=== PATIENT | female | born 1960 | race Caucasian/White ===

== ENCOUNTER → 2017-06-13 | Outpatient (CLI) | payer BC ==
--- NOTE | 2017-06-13 14:13 | US ---
EXAMINATION TYPE: US venous doppler duplex LE LT DATE OF EXAM: 06/13/2017 1:52 PM COMPARISON: NONE CLINICAL HISTORY: Localized Swelling Mass/Lump Left Lower LimbR22.42. Patient stated has been treated recently for cellulitis left leg and complains of palpable and skin redness anterior lower left leg. SIDE PERFORMED: Left TECHNIQUE: The lower extremity deep venous system is examined utilizing real time linear array sonog binta with graded compression, doppler sonography and color-flow sonography. VESSELS IMAGED: Common Femoral Vein Deep Femoral Vein Greater Saphenous Vein * Femoral Vein Popliteal Vein Small Saphenous Vein * Proximal Calf Veins (* superficial vessels) Left Leg: Negative for DVT. At patient's palpable and skin redness a superficial vein is noted not f ully compressing for 4.0cm length, but color flow is achieved by distal augmentation. Left groin lymp h node is imaged = 3.5 x 1.4 x 1.0cm. Tech findings reported to Evelia at Dr An's Office at exam 's end. Patient is advised to contact Dr An for any patient care. IMPRESSION: Grayscale, color doppler, spectral doppler imaging performed of the deep veins of the lo wer extremities. There is normal flow, compressibility, vascular waveforms. No evident deep venous thrombosis at or above the left knee. In the lower leg at the site of patient's palpable abnormality there is some low-level internal echo present within the superficial vein which is not completely present. There is local edema present. Fi ndings may represent a superficial thrombophlebitis.
== END | disposition home or self-care (01) ==
LOC: RADUSWWP 13:21
PROVIDERS: ATTEND Family Medicine
DX: R22.42 Localized swelling, mass and lump, left lower limb (principal)

== ENCOUNTER → 2019-03-11 | Outpatient (CLI) | payer BC ==
--- NOTE | 2019-03-11 18:00 | ECHOF ---
Referral Reason:R01.1 cardiac murmur MEASUREMENTS -------- HEIGHT: 160.0 cm WEIGHT: 106.6 kg BP: 141/65 RVIDd: 3.0 cm (< 3.3) IVSd: 0.9 cm (0.6 - 1.1) LVIDd: 3.4 cm (3.9 - 5.3) LVPWd: 0.9 cm (0.6 - 1.1) IVSs: 1.4 cm LVIDs: 1.9 cm LVPWs: 1.4 cm LA Diam: 2.9 cm (2.7 - 3.8) LAESV Index (A-L): 14.43 ml/m Ao Diam: 3.2 cm (2.0 - 3.7) AV Cusp: 1.9 cm (1.5 - 2.6) MV EXCURSION: 11.388 mm (> 18.000) MV EF SLOPE: 31 mm/s (70 - 150) EPSS: 0.5 cm MV E Pete: 0.99 m/s MV DecT: 303 ms MV A Pete: 1.11 m/s MV E/A Ratio: 0.89 TAPSE: 26.16 mm FINDINGS -------- Sinus rhythm. This was a technically adequate study. The left ventricular size is normal. Left ventricular wall thickness is normal. Overall left vent ricular systolic function is normal with, an EF between 60 - 65 %. The diastolic filling pattern is normal for the age of the patient 11.85. The right ventricle is normal in size. Normal LA size by volume 22+/-6 ml/m2. The right atrium is normal in size. Interatrial and interventricular septum intact. The aortic valve is trileaflet and appears structurally normal. The mitral valve is normal. The tricuspid valve appears structurally normal. There is no pulmonic regurgitation present. The aortic root size is normal. Normal inferior vena cava with normal inspiratory collapse consistent with estimated right atrial pre ssure of 5 mmHg. There is no pericardial effusion. CONCLUSIONS -------- 1. Sinus rhythm. 2. This was a technically adequate study. 3. The left ventricular size is normal. 4. Left ventricular wall thickness is normal. 5. Overall left ventricular systolic function is normal with, an EF between 60 - 65 %. 6. The diastolic filling pattern is normal for the age of the patient 11.85 7. The right ventricle is normal in size. 8. Normal LA size by volume 22+/-6 ml/m2. 9. The right atrium is normal in size. 10. Interatrial and interventricular septum intact. 11. The aortic valve is trileaflet and appears structurally normal. 12. The mitral valve is normal. 13. The tricuspid valve appears structurally normal. 14. There is no pulmonic regurgitation present. 15. The aortic root size is normal. 16. Normal inferior vena cava with normal inspiratory collapse consistent with estimated right atrial pressure of 5 mmHg. 17. There is no pericardial effusion. BOTTOM PRESSER: Mariam Chinchilla RDCS
== END | disposition home or self-care (01) ==
LOC: RADECHMAIN 16:25
PROVIDERS: ATTEND Family Medicine
DX: R01.1 Cardiac murmur, unspecified (principal)
CPT/HCPCS: 93306

== ENCOUNTER → 2019-03-26 | Outpatient (CLI) | payer BC ==
--- NOTE | 2019-03-29 13:59 | MM ---
Reason for exam: screening (asymptomatic). Last mammogram was performed 3 years and 9 months ago. History: Patient is postmenopausal and is nulliparous. Took hormonal contraceptives for 5 years. Physical Findings: A clinical breast exam by your physician is recommended on an annual basis and results should be correlated with mammographic findings. MG 3D Screening Mammo W/Cad Bilateral CC and MLO view(s) were taken. Prior study comparison: July 04, 2015, bilateral MG 3d screening mammo w/cad. February 11, 2012, mammogram, performed at [facility]. There are scattered fibroglandular densities. No significant changes when compared with prior studies. ASSESSMENT: Negative, BI-RAD 1 RECOMMENDATION: Routine screening mammogram of both breasts in 1 year.
== END | disposition home or self-care (01) ==
LOC: RADMAMWWP 17:02
PROVIDERS: ATTEND Family Medicine
DX: Z12.31 Encounter for screening mammogram for malignant neoplasm of breast (principal)
CPT/HCPCS: 77063; 77067

== ENCOUNTER → 2020-11-30 | Outpatient (CLI) | payer BC ==
--- NOTE | 2020-12-04 14:28 | MM ---
Reason for exam: screening (asymptomatic). Last mammogram was performed 1 year and 8 months ago. History: Patient is postmenopausal and is nulliparous. Took hormonal contraceptives for 5 years. Physical Findings: A clinical breast exam by your physician is recommended on an annual basis and results should be correlated with mammographic findings. MG Screening Mammo w CAD Bilateral CC and MLO view(s) were taken. Prior study comparison: March 26, 2019, bilateral MG 3d screening mammo w/cad. July 04, 2015, bilateral MG 3d screening mammo w/cad. Left new nodule upper outer middle depth. This finding is changed when compared with previous exams. ASSESSMENT: Incomplete: need additional imaging evaluation, BI-RAD 0 RECOMMENDATION: Special view mammogram of the left breast. If lesion persists on supplemental views, image directed ultrasound is recommended. [facility] will attempt to contact patient to return for supplemental views and ultrasound if indicated.
== END | disposition home or self-care (01) ==
LOC: RADMAMWWP 16:34
PROVIDERS: ATTEND Family Medicine
DX: Z12.31 Encounter for screening mammogram for malignant neoplasm of breast (principal); Z78.0 Asymptomatic menopausal state; Z79.3 Long term (current) use of hormonal contraceptives
CPT/HCPCS: 77067

== ENCOUNTER → 2020-12-20 | Outpatient (CLI) | payer BC ==
--- NOTE | 2020-12-22 13:37 | MM ---
Reason for exam: additional evaluation requested from abnormal screening. Last mammogram was performed 1 month ago. History: Patient is postmenopausal and is nulliparous. Took hormonal contraceptives for 5 years. Physical Findings: Nurse did not find any significant physical abnormalities on exam. MG Work Up Mamm w CAD LT CC and MLO view(s) were taken of the left breast. Prior study comparison: November 30, 2020, bilateral MG screening mammo w CAD. March 26, 2019, bilateral MG 3d screening mammo w/cad. The breast tissue is heterogeneously dense. This may lower the sensitivity of mammography. There is no discrete abnormality including area of concern left upper outer quadrant prior exam. These results were verbally communicated with the patient and result sheet given to the patient on 12/20/20. ASSESSMENT: Probably benign, BI-RAD 3 RECOMMENDATION: Follow-up diagnostic mammogram of the left breast in 6 months.
== END | disposition home or self-care (01) ==
LOC: RADMAMWWP 15:02
PROVIDERS: ATTEND Family Medicine
DX: R92.2 Inconclusive mammogram (principal); Z78.0 Asymptomatic menopausal state
CPT/HCPCS: 77065

== ENCOUNTER → 2021-07-04 | Outpatient (CLI) | payer BC ==
--- NOTE | 2021-07-05 08:32 | MM ---
Reason for exam: follow-up at short interval from prior study. Last mammogram was performed 6 months ago. History: Patient is postmenopausal and is nulliparous. Took hormonal contraceptives for 5 years. Physical Findings: Nurse did not find any significant physical abnormalities on exam. MG 3D Diag Mammo W/Cad LT CC, MLO, and LM view(s) were taken of the left breast. Prior study comparison: December 20, 2020, left breast MG work up mamm w CAD LT. November 30, 2020, bilateral MG screening mammo w CAD. Small 5mm nodular density upper outer left breast 5.4cm from nipple. Ultrasound is recommended. These results were verbally communicated with the patient and result sheet given to the patient on 07/04/21. ASSESSMENT: Incomplete: need additional imaging evaluation, BI-RAD 0 RECOMMENDATION: Ultrasound of the left breast.
--- NOTE | 2021-07-05 08:33 | USB ---
Reason for exam: additional evaluation requested from abnormal screening. History: Patient is postmenopausal and is nulliparous. Took hormonal contraceptives for 5 years. US Breast Limited LT Left limited breast ultrasound including focal area of concern, retroareolar and axilla demonstrates no cystic or solid lesion seen. These results were verbally communicated with the patient and result sheet given to the patient on 07/04/21. ASSESSMENT: Negative, BI-RAD 1 RECOMMENDATION: Return to routine screening mammogram schedule for both breasts. Back on schedule.
== END | disposition home or self-care (01) ==
LOC: RADMAMWWP 14:57
PROVIDERS: ATTEND Family Medicine
DX: R92.8 Other abnormal and inconclusive findings on diagnostic imaging of breast (principal); Z78.0 Asymptomatic menopausal state
CPT/HCPCS: 77061; 77065

== ENCOUNTER 2022-04-13 12:03 | Emergency (ER) | payer BC ==
[2022-04-13 12:16] VITALS: TEMP 99.2
[2022-04-13] MEDS ORDERED: diphenhydrAMINE 50 MG/ML 1 ML VIAL IVP STA (13:09)
[2022-04-13] MEDS ORDERED: SODIUM CHLORIDE 0.9% 500 ML 500 ML IV STA (13:09)
[2022-04-13] MEDS ORDERED: METOCLOPRAMIDE 5 MG/ML 2 ML VIAL IVP STA (13:09)
[2022-04-13] MEDS ORDERED: MECLIZINE 12.5 MG TAB PO STA (13:09)
--- NOTE | 2022-04-13 13:12 | ED ---
General Adult HPI - General Chief complaint: Dizziness Stated complaint: dizzy Time Seen by Provider: 04/13/22 13:02 Source: patient Mode of arrival: wheelchair Limitations: no limitations - History of Present Illness Initial comments: Patient presents to the ED with her for evaluation. Patient states that she has had dizziness, a diffuse headache and nausea for the past 4 days or so. Patient states that she has a history of macular edema, and she states that her left eye has been bothering her recently as well. Patient states that her di zziness is worse with ambulation and changes in position. Patient denies trauma or injury, sudden onset of headache, LOC, neck pain or stiffness, fever or chills, focal numbness/weakness/neuro deficit, speech difficulty, eye pain, chest pain or pressure, dyspnea, cough or cold symptoms, palpitations, syncope, abdominal pain, nausea/vomiting/diarrhea, bloody or melanotic stool, dysuria or urinary symptoms, or any other symptoms or complaints. Patient denies taking any medication for management of her symptoms today. - Related Data Previous Rx's Medication Instructions Recorded Meclizine [Antivert] 25 mg PO TID PRN #10 tab 04/13/22 Allergies Allergy/AdvReac Type Severity Reaction Status Date / Time No Known Allergies Allergy Verified 04/13/22 12:15 Review of Systems ROS Statement: Those systems with pertinent positive or pertinent negative responses have been documented in the HPI. ROS Other: All systems not noted in ROS Statement are negative. Past Medical History Past Medical History: Diabetes Mellitus, Eye Disorder, Hyperlipidemia, Hypertension Additional Past Medical History / Comment(s): macular edema History of Any Multi-Drug Resistant Organisms: MRSA Date of last positivie culture/infection: 2009 back of neck Past Surgical History: Appendectomy, Cholecystectomy Past Psychological History: Depression Smoking Status: Former smoker Past Alcohol Use History: None Reported Past Drug Use History: None Reported General Exam Limitations: no limitations General appearance: alert, in no apparent distress Head exam: Present: atraumatic, normocephalic, other (No facial/temporal/scalp swelling or tenderness is noted) Eye exam: Present: normal appearance, PERRL, EOMI. Absent: nystagmus ENT exam: Present: mucous membranes moist, TM's normal bilaterally Neck exam: Present: other (No nuchal rigidity or meningeal signs are present on exam; trachea is in midline). Absent: tenderness, meningismus Respiratory exam: Present: normal lung sounds bilaterally. Absent: respiratory distress, wheezes, rales, rhonchi, stridor Cardiovascular Exam: Present: regular rate, normal rhythm, normal heart sounds, other (Normal radial pulses bilaterally) GI/Abdominal exam: Present: soft. Absent: distended, tenderness, guarding Extremities exam: Absent: tenderness, pedal edema Neurological exam: Present: alert, oriented X3, CN II-XII intact, other (Normal etkevb-ci-hovn exam bilaterally). Absent: motor sensory deficit Psychiatric exam: Present: normal affect, normal mood Skin exam: Present: warm, dry, intact, normal color Course Vital Signs 04/13/22 12:08 Temperature 99.2 F Pulse Rate 82 Respiratory 18 Rate Blood Pressure 156/69 O2 Sat by Pulse 99 Oximetry - Reevaluation(s) Reevaluation #1: 04/13/22 16:48 Patient states that her headache and dizziness have improved with ED treatment, and she denies development of any new symptoms while in the ED. Patient remains alert and breathing comfortably. Patient continues to have a nonfocal n eurological exam. Patient has been ambulatory in the ED without difficulty. I have discussed with the patient the option to be admitted to the hospital for observation and symptom control, but she declines, and she states that she wishes to be discharged home. Patient was counseled about headaches and dizziness, and she was clearly explained return and follow-up instructions. Patient was instructed to follow up closely with her primary care provider. Patient feels comfortable to plan. EKG Findings - EKG Comments: EKG Findings:: ED physician interpretation: Normal sinus rhythm, ventricular rate of 80 bpm, normal DC and QRS intervals, normal QT interval, normal axis, no ST or T-wave abnormality Medical Decision Making - Medical Decision Making Patient's EKG, labs and head CT are fairly unremarkable. Patient's vital signs are reassuring. Patient's symptoms have improved with ED treatment. Patient reports that her dizziness is worse with ambulation and changes in position. I suspect that her dizziness may be due to positional vertigo. Patient has declined hospital admission, and she wishes to be discharged home. Patient was instructed to, and agrees to, follow-up closely with her primary care provider. Will discharge patient home with a prescription for meclizine. Patient feels comfortable with this plan. - Lab Data Result diagrams: 04/13/22 13:23 04/13/22 13:23 Lab Results 04/13/22 04/13/22 04/13/22 Range/Units 13:23 13:23 13:23 WBC 10.1 (3.8-10.6) k/uL RBC 5.31 (3.80-5.40) m/uL Hgb 14.9 (11.4-16.0) gm/dL Hct 45.2 (34.0-46.0) % MCV 85.0 (80.0-100.0) fL MCH 28.0 (25.0-35.0) pg MCHC 32.9 (31.0-37.0) g/dL RDW 13.2 (11.5-15.5) % Plt Count 126 L (150-450) k/uL MPV 9.0 Neutrophils % 81 % Lymphocytes % 11 % Monocytes % 5 % Eosinophils % 2 % Basophils % 1 % Neutrophils # 8.2 H (1.3-7.7) k/uL Lymphocytes # 1.1 (1.0-4.8) k/uL Monocytes # 0.5 (0-1.0) k/uL Eosinophils # 0.2 (0-0.7) k/uL Basophils # 0.1 (0-0.2) k/uL ESR 15 (0-20) mm/hr Sodium 139 (137-145) mmol/L Potassium 3.9 (3.5-5.1) mmol/L Chloride 102 (98-107) mmol/L Carbon Dioxide 26 (22-30) mmol/L Anion Gap 11 mmol/L BUN 14 (7-17) mg/dL Creatinine 0.81 (0.52-1.04) mg/dL Est GFR (CKD-EPI)AfAm >90 (>60 ml/min/1.73 sqM) Est GFR (CKD-EPI)NonAf 80 (>60 ml/min/1.73 sqM) Glucose 199 H (74-99) mg/dL Calcium 9.0 (8.4-10.2) mg/dL Total Bilirubin 1.7 H (0.2-1.3) mg/dL AST 40 H (14-36) U/L ALT 34 (4-34) U/L Alkaline Phosphatase 56 (38-126) U/L Troponin I <0.012 (0.000-0.034) ng/mL C-Reactive Protein <0.5 (<1.0) mg/dL Total Protein 7.2 (6.3-8.2) g/dL Albumin 4.5 (3.5-5.0) g/dL - Radiology Data Noncontrast head CT: Mild atrophy. No acute intracranial abnormality. Mild chronic small vessel ischemia. Disposition Clinical Impression: Dizziness, Headache Disposition: HOME SELF-CARE Condition: Stable Instructions (If sedation given, give patient instructions): Dizziness (ED), Acute Headache (ED), Benign Paroxysmal Positional Vertigo (ED) Additional Instructions: Return to the ER immediately should you develop new or worsening pain, increased dizziness, fainting, numbness or weakness, shortness of breath, persistent vomiting, a fever, or new or worsening symptoms. Follow up closely with your primary care provider. Prescriptions: Meclizine [Antivert] 25 mg PO TID PRN #10 tab PRN Reason: Vertigo Is patient prescribed a controlled substance at d/c from ED?: No Referrals: Sherry Antony MD [Primary Care Provider] - 1-2 days Time of Disposition: 16:59
[2022-04-13 13:29] LABS: Basophils # (A) 0.1 k/uL (0-0.2); Basophils % (A) 1 %; Eosinophils # (A) 0.2 k/uL (0-0.7); Eosinophils % (A) 2 %; HCT 45.2 % (34.0-46.0); HGB 14.9 gm/dL (11.4-16.0); Lymphocytes # (A) 1.1 k/uL (1.0-4.8); Lymphocytes % (A) 11 %; MCHC 32.9 g/dL (31.0-37.0); Monocytes # (A) 0.5 k/uL (0-1.0); Monocytes % (A) 5 %; Neutrophils # (A) 8.2 k/uL (1.3-7.7); Neutrophils % (A) 81 %; Platelet Count 126 k/uL (150-450); RBC 5.31 m/uL (3.80-5.40); RDW 13.2 % (11.5-15.5); WBC 10.1 k/uL (3.8-10.6)
[2022-04-13 13:44] LABS: ALT 34 U/L (4-34); AST 40 U/L (14-36); African American GFR (CKD) >90 (>60 ml/min/1.73 sqM); Albumin 4.5 g/dL (3.5-5.0); Alkaline Phosphatase 56 U/L (38-126); Anion Gap 11 mmol/L; Blood Urea Nitrogen 14 mg/dL (7-17); C Reactive Protein <0.5 mg/dL (<1.0); Carbon Dioxide 26 mmol/L (22-30); Chloride 102 mmol/L (98-107); Glucose 199 mg/dL (74-99); Non-African American GFR(CKD) 80 (>60 ml/min/1.73 sqM); Potassium 3.9 mmol/L (3.5-5.1); Sodium 139 mmol/L (137-145); Total Bilirubin 1.7 mg/dL (0.2-1.3); Total Protein 7.2 g/dL (6.3-8.2)
[2022-04-13 14:20] LABS: Erythrocyte Sedimentation Rate 15 mm/hr (0-20)
--- NOTE | 2022-04-13 14:30 | CT ---
EXAMINATION TYPE: CT brain wo con DATE OF EXAM: 04/13/2022 COMPARISON: None HISTORY: Headache, dizziness CT DLP: 1102.4 mGycm Automated exposure control for dose reduction was used. Images of the brain obtained with no contrast. Ventricles of normal size. There is no mass effect or midline shift. No sign of intracranial hemorrha ge. There is mild cerebral cortical atrophy. Calvarium is intact. There is mild hypodensity in the wh ite matter around the posterior temporal lobes. There is normal aeration of the mastoid sinuses. IMPRESSION: Mild atrophy. No acute intracranial abnormality. Mild chronic small vessel ischemia.
[2022-04-13 17:20] VITALS: BP 139/79; PULSE 84; RESP 16
== END 2022-04-13 17:19 | disposition home or self-care (01) ==
LOC: EC 12:03
DX: R51.9 Headache, unspecified (principal); R42 Dizziness and giddiness; I10 Essential (primary) hypertension; E78.5 Hyperlipidemia, unspecified; E11.9 Type 2 diabetes mellitus without complications; F32.A Depression, unspecified; Z87.891 Personal history of nicotine dependence
CPT/HCPCS: 96361 ×5; 96374 ×2; 96375 ×2; 99284 ×2; 36415; 93005; 80053; 85652; 84484; 85025; 86140; 70450; J1200; J2765

== ENCOUNTER → 2022-10-31 | Outpatient (CLI) | payer BC ==
[2022-10-31 13:45] VITALS: BP 130/74; PULSE 96; RESP 16; TEMP 98.8; BMI 44.6
--- NOTE | 2022-10-31 16:44 | P.HPBAR ---
Bariatric H&P - History & Physicial H&P Date: 10/31/22 History & Physicial: Visit/CC: Initial Visit Patient initial contact: Initial weight: 112.548 kg Initial weight in pounds: 248.13 Height: 5 ft 2.5 in Initial BMI: 44.6 Last weight: Current weight: 112.548 kg Current weight in pounds: 248.13 Current BMI: 44.6 [place] body weight (based on NIH guidelines): 51.029 kg Excess body weight loss: 0.0% The patient is a 62 year-old F who presents for Bariatric Assessment. Patient presents today to discuss surgical options for weight loss. Patient has a BMI of 44.6. She has a history of type 2 diabetes, hypertension, hypercholesterolemia. Patient has a history of appendectomy and laparoscopic cholecystectomy. No history of DVT or dysphagia. Minimal reflux symptoms at times. No tobacco use. Review of Systems The patient denies any acute changes in vision or hearing, no dysphagia or odynophagia, no chest pain or shortness of breath, no dysuria or hematuria, no headache, no runny nose, no rectal bleeding or melena, no unexplained weight loss Past Medical History Past Medical History: Diabetes Mellitus, Eye Disorder, Hyperlipidemia, Hypertension Additional Past Medical History / Comment(s): macular edema History of Any Multi-Drug Resistant Organisms: MRSA Year Discovered:: 2009 back of neck MDRO Source:: unkown Past Surgical History: Appendectomy, Cholecystectomy Past Anesthesia/Blood Transfusion Reactions: No Reported Reaction Past Psychological History: Depression Smoking Status: Former smoker Past Alcohol Use History: None Reported Additional Past Alcohol Use History / Comment(s): quit smoking 1999 Past Drug Use History: None Reported Surgical - Exam Vital Signs Temp Pulse Resp BP 98.8 F 96 16 130/74 10/31/22 13:42 10/31/22 13:42 10/31/22 13:42 10/31/22 13:42 Physical exam: General: Well-developed, well-nourished HEENT: Normocephalic, sclerae nonicteric Abdomen: Nontender, nondistended Extremities: No edema Neuro: Alert and oriented Bariatric Assessment & Plan (1) Morbid obesity with BMI of 40.0-44.9, adult Narrative/Plan: 62-year-old female with morbid obesity and associated comorbidities. Options of bariatric surgery reviewed in detail with the patient. Discussed laparoscopic sleeve gastrectomy and gastric bypass and the associated risks. Anticipated average weight loss and postoperative course reviewed as well. One of the comments the patient made initially during our evaluation was that she was most interested in improving her type 2 diabetes. We did discuss that gastric bypass would have a higher likelihood of diabetes resolution. Patient plans to continue considering both surgical options. In the meanwhile we will proceed with preoperative EGD. We'll obtain appropriate documentation from primary care team. Patient will have psychological evaluation scheduled. We will see patient back in office following upper endoscopy. Status: Acute Bariatric Checklist Checklist: Plan: Checklist: EGD: 1. Hiatal hernia: 2. H. Pylori: HgbA1c: Vitamin D: Smoking: Primary care physician referral: Dr. Sherry Antony NP Psychiatry clearance: Cardiology clearance: Sleep study: Diet journal: VTE risk score: VTE risk level: Rehab needs at discharge:
== END ==
LOC: BARWHC3 13:29
PROVIDERS: ATTEND Surgery
DX: E66.01 Morbid (severe) obesity due to excess calories (principal); Z68.41 Body mass index [BMI] 40.0-44.9, adult; E11.9 Type 2 diabetes mellitus without complications; Z79.4 Long term (current) use of insulin; Z79.84 Long term (current) use of oral hypoglycemic drugs; I10 Essential (primary) hypertension; E78.00 Pure hypercholesterolemia, unspecified; F32.A Depression, unspecified; Z87.891 Personal history of nicotine dependence; Z79.85 Long-term (current) use of injectable non-insulin antidiabetic drugs
CPT/HCPCS: 99202

== ENCOUNTER → 2022-11-21 | Outpatient (CLI) | payer BC ==
[2022-11-21 20:19] LABS: ALT 29 U/L (8-44); AST 24 U/L (13-35); Albumin 4.3 d/dL (3.8-4.9); Albumin/Globulin Ratio 1.65 Ratio (1.60-3.17); Alkaline Phosphatase 49 U/L (41-126); Blood Urea Nitrogen 25.2 mg/dL (9.0-27.0); Calcium 9.5 mg/dL (8.7-10.3); Carbon Dioxide 23.2 mmol/L (21.6-31.8); Chloride 99 mmol/L (96-109); Globulin 2.6 d/dL (1.6-3.3); Glucose 300 mg/dL (70-110); Iron 52 UG/DL (50-170); Potassium 4.7 mmol/L (3.5-5.5); Sodium 135 mmol/L (135-145); Total Bilirubin 0.8 mg/dL (0.3-1.2); Total Protein 6.9 d/dL (6.2-8.2)
[2022-11-21 21:31] LABS: HGB 13.2 d/dL (12.0-15.0); MCH 27.8 pg (27.0-32.0); MCHC 32.2 d/dL (32.0-37.0); MCV 86.3 FL (80.0-97.0); NRBC Per 100 WBC 0 X 10*3/uL (0.00-0.01); Platelet Count 130 X 10*3/uL (140-440); RBC 4.75 X 10*6/uL (4.10-5.20); RDW 14.1 % (11.5-14.5)
== END | disposition home or self-care (01) ==
LOC: LABWHC1 15:21
PROVIDERS: ATTEND Surgery
DX: E66.01 Morbid (severe) obesity due to excess calories (principal); Z71.51 Drug abuse counseling and surveillance of drug abuser; K90.89 Other intestinal malabsorption; E55.9 Vitamin D deficiency, unspecified
CPT/HCPCS: 36415; 80053; 80323; 82306; 82607; 82746; 83540; 85027; 93005

== ENCOUNTER 2022-12-17 08:03 | Day surgery (SDC) | payer BC ==
[~2022-12-17 08:03] MED LIST: LACTATED RINGERS 1,000 ML IV SCH; LIDOCAINE 1% (10MG/ML) FOR IV START INTRADERMA PRN; ONDANSETRON 4 MG/2 ML VIAL IVP PRN
[2022-12-17 08:43] LABS: Glucose,Whole Blood 125 mg/dL (70-110)
[2022-12-17] MEDS ORDERED: LIDOCAINE 2% INJ 20 MG/ML (2 ML VIAL) ONE (08:43)
[2022-12-17] MEDS ORDERED: PROPOFOL 10 MG/ML 20 ML VIAL IV ONE (08:43)
[2022-12-17 08:44] VITALS: RESP 16; TEMP 97
--- NOTE | 2022-12-17 08:48 | P.GSHP ---
History of Present Illness H&P Date: 12/17/22 Chief Complaint: GERD, presurgical 62-year-old female seen in the bariatric clinic. Patient interested in sleeve gastrectomy. Patient has mild reflux symptoms. No dysphagia. Past Medical History Past Medical History: Diabetes Mellitus, Eye Disorder, Hyperlipidemia, Hypertension Additional Past Medical History / Comment(s): macular edema History of Any Multi-Drug Resistant Organisms: MRSA Date of last positivie culture/infection: 2009 back of neck MDRO Source:: unkown Past Surgical History: Appendectomy, Cholecystectomy Past Anesthesia/Blood Transfusion Reactions: No Reported Reaction Smoking Status: Former smoker Medications and Allergies Home Medications Medication Instructions Recorded Confirmed Type Cetirizine HCl [Zyrtec] 10 mg PO DAILY 10/31/22 12/17/22 History Dulaglutide [Trulicity] 3 mg SQ WEEKLY 10/31/22 12/17/22 History Insulin Degludec [Tresiba] 60 unit SQ HS 10/31/22 12/17/22 History Pioglitazone [Actos] 30 mg PO DAILY 10/31/22 12/17/22 History Sertraline [Zoloft] 100 mg PO DAILY 10/31/22 12/17/22 History Simvastatin [Zocor] 20 mg PO DAILY 10/31/22 12/17/22 History lisinopriL [Zestril] 20 mg PO DAILY 10/31/22 12/17/22 History metFORMIN HCL 1,000 mg PO BID 10/31/22 12/17/22 History Multivitamins, Thera [Multivitamin 1 tab PO DAILY 12/12/22 12/17/22 History (formulary)] Allergies Allergy/AdvReac Type Severity Reaction Status Date / Time No Known Allergies Allergy Verified 12/17/22 08:34 Surgical - Exam Vital Signs Temp Resp BP Pulse Ox 97 F L 16 165/72 95 12/17/22 08:40 12/17/22 08:40 12/17/22 08:40 12/17/22 08:40 Physical exam: General: Well-developed, well-nourished HEENT: Normocephalic, sclerae nonicteric Abdomen: Nontender, nondistended Extremities: No edema Neuro: Alert and oriented Results - Labs Abnormal Lab Results - Last 24 Hours (Table) 12/17/22 Range/Units 08:41 POC Glucose (mg/dL) 125 H (70-110) mg/dL Assessment and Plan (1) GERD (gastroesophageal reflux disease) Narrative/Plan: Will proceed with upper endoscopy. Current Visit: Yes Status: Acute Code(s): K21.9 - GASTRO-ESOPHAGEAL REFLUX DISEASE WITHOUT ESOPHAGITIS SNOMED Code(s): 566846869
--- NOTE | 2022-12-17 08:57 | P.PCN ---
Date of Procedure: 12/17/22 Procedure(s) Performed: Preoperative Dx: GERD, presurgical Postoperative Dx: Mild gastritis, mild duodenitis Procedure: EGD with Bx Anesthesia: Sedation Endoscopist: Dr. Antony Specimens: Antrum, duodenum Endoscopic Procedure: The patient was on the endoscopy table in the left decubitus position. The Olympus gastroscope was inserted into the oropharynx and passed under direct visualization to the region of the third portion of the duodenum. From that point the scope was slowly withdrawn inspecting all surfaces carefully. There was mild inflammation in the duodenum consistent with mild duodenitis. A biopsy of the duodenum took place. The pylorus was widely patent. The stomach was carefully inspected. There was mild gastritis present. A biopsy of the antrum took place to rule out H. pylori. Retroflexion revealed a normal hiatus. The esophagus was then carefully examined. There were no neoplastic inflammatory or polypoid lesions throughout the visualized esophagus. The patient was then taken to the recovery room in stable condition per anesthesia guidelines. Recommendations: Await biopsy results. Follow-up bariatric center.
[2022-12-17 09:30] VITALS: BP 129/83; PULSE 83
== END 2022-12-17 09:31 | disposition home or self-care (01) ==
LOC: ORWHC2ENDO 08:03
PROVIDERS: ATTEND Surgery
DX: K29.50 Unspecified chronic gastritis without bleeding (principal); K21.9 Gastro-esophageal reflux disease without esophagitis; K29.80 Duodenitis without bleeding; E78.5 Hyperlipidemia, unspecified; E11.9 Type 2 diabetes mellitus without complications; Z90.49 Acquired absence of other specified parts of digestive tract; Z79.4 Long term (current) use of insulin; Z79.84 Long term (current) use of oral hypoglycemic drugs; Z79.899 Other long term (current) drug therapy
CPT/HCPCS: 88305; 43239; J2704; J2001

== ENCOUNTER → 2023-01-20 | Outpatient (CLI) | payer BC ==
[2023-01-20 11:26] VITALS: BMI 45.0
== END ==
LOC: BARWHC3 08:54
PROVIDERS: ATTEND Surgery
DX: E66.01 Morbid (severe) obesity due to excess calories (principal); Z68.42 Body mass index [BMI] 45.0-49.9, adult; Z71.3 Dietary counseling and surveillance
CPT/HCPCS: 97804

== ENCOUNTER → 2023-01-21 | Outpatient (CLI) | payer BC ==
[2023-01-21 15:18] VITALS: BP 113/62; PULSE 90; TEMP 98; BMI 45.0
--- NOTE | 2023-01-21 16:48 | P.BASOAP ---
Subjective Progress Note Date: 01/21/23 Principal diagnosis: Morbid obesity 62-year-old female returns after recent EGD. Patient being evaluated for sleep gastrectomy. BMI today 45.0. Recent EGD showed duodenitis. Biopsies showed no H. pylori. No changes to her previous history and physical other than the patient admits that she tends to pick at open wounds. She says she has a rash across her pannus that she will frequently scratch at resulting in more issues and wound formation. She has an area in the infraumbilical location currently. She has a history of psoriasis and MRSA in the past. Objective - Vital Signs Vital signs: Vital Signs Temp 98 F 01/21/23 15:16 Pulse 90 01/21/23 15:16 Resp BP 113/62 01/21/23 15:16 Pulse Ox FiO2 Intake & Output 01/20/23 01/21/23 01/21/23 18:59 06:59 18:59 Weight 113.398 kg - Exam Abdomen: Soft, nondistended, nontender, small superficial wounds present inferior to umbilicus slightly to the right, mild panniculitis noted Assessment/Plan (1) Morbid obesity with BMI of 40.0-44.9, adult Narrative/Plan: 62-year-old female with morbid obesity. Patient remains interested in sleeve gastrectomy. Surgical consent form reviewed in detail. All questions answered. Will tentatively scheduled for sleeve gastrectomy in the next few months. Plan: Date: 01/21/23 Initial Weight: 112.548 kg Initial BMI: 44.6 Current Weight: 113.398 kg Current BMI: 45.0 Type of Surgery: Total Volume in Band: Previous Volume: Volume Removed: Volume Added: Band Size:
== END ==
LOC: BARWHC3 14:24
PROVIDERS: ATTEND Surgery
DX: E66.01 Morbid (severe) obesity due to excess calories (principal); Z68.42 Body mass index [BMI] 45.0-49.9, adult
CPT/HCPCS: 99211

== ENCOUNTER → 2023-04-07 | Outpatient (CLI) | payer BC ==
[2023-04-07 16:53] LABS: Basophils # (A) 0.06 X 10*3/uL (0.00-0.10); Basophils % (A) 0.7 %; Eosinophils # (A) 0.15 X 10*3/uL (0.04-0.35); Eosinophils % (A) 1.8 %; HCT 44.7 % (37.2-46.3); HGB 14.8 g/dL (12.0-15.0); Lymphocytes # (A) 1.67 X 10*3/uL (0.90-5.00); Lymphocytes % (A) 20.5 %; MCH 27.9 pg (27.0-32.0); MCHC 33.1 g/dL (32.0-37.0); MCV 84.2 FL (80.0-97.0); Mean Platelet Volume 12.4 FL (9.5-12.2); Monocytes # (A) 0.77 X 10*3/uL (0.20-1.00); Monocytes % (A) 9.4 %; NRBC Per 100 WBC 0 X 10*3/uL (0.00-0.01); Neutrophils # (A) 5.48 X 10*3/uL (1.80-7.70); Neutrophils % (A) 67.2 %; Platelet Count 139 X 10*3/uL (140-440); RBC 5.31 X 10*6/uL (4.10-5.20); RDW 13.8 % (11.5-14.5); WBC 8.16 X 10*3/uL (4.50-10.00)
[2023-04-07 18:37] LABS: ALT 35 U/L (8-44); AST 35 U/L (13-35); Albumin 4.7 g/dL (3.8-4.9); Albumin/Globulin Ratio 1.68 Ratio (1.60-3.17); Alkaline Phosphatase 47 U/L (41-126); Blood Urea Nitrogen 25.8 mg/dL (9.0-27.0); Calcium 9.7 mg/dL (8.7-10.3); Carbon Dioxide 21.9 mmol/L (21.6-31.8); Chloride 99 mmol/L (96-109); Globulin 2.8 g/dL (1.6-3.3); Glucose 95 mg/dL (70-110); Potassium 4.8 mmol/L (3.5-5.5); Sodium 136 mmol/L (135-145); Total Protein 7.5 g/dL (6.2-8.2)
== END | disposition home or self-care (01) ==
LOC: LABPAT 09:03
PROVIDERS: ATTEND Surgery
DX: Z01.818 Encounter for other preprocedural examination (principal)
CPT/HCPCS: 80053; 85025; 86850; 86900; 86901; 93005

== ENCOUNTER → 2023-04-22 | Outpatient (CLI) | payer BC ==
[2023-04-22 13:37] VITALS: BP 136/84; PULSE 88; RESP 16; TEMP 97.9; BMI 41.2
--- NOTE | 2023-04-22 13:40 | P.BASOAP ---
Subjective Progress Note Date: 04/22/23 Principal diagnosis: Morbid obesity 62-year-old female returns after sleeve gastrectomy 1 week ago. Overall doing fairly well. Denies pain. Pain is 1 out of 10. No nausea. No dysphagia. States her urine is pale in color. She however describes anywhere from 12-35 ounces of liquids daily. States she is just not hungry. She is taking her antiacids. Heart rate 88. Objective - Vital Signs Vital signs: Vital Signs Temp 97.9 F 04/22/23 13:18 Pulse 88 04/22/23 13:18 Resp 16 04/22/23 13:18 BP 136/84 04/22/23 13:18 Pulse Ox FiO2 Intake & Output 04/21/23 04/22/23 04/22/23 18:59 06:59 18:59 Weight 103.873 kg - Exam Abdomen: Soft, nondistended, minimal tenderness, incisions clean and dry Assessment/Plan (1) Morbid obesity with BMI of 40.0-44.9, adult Narrative/Plan: Patient doing fairly well. Certainly needs to increase her fluid intake. We discussed the option of IV hydration. She wants to avoid that. She states she will drink more today. Will do a clinical check tomorrow to see how she is doing with her fluid intake. Plan follow-up 1 week. Plan: Date: 04/22/23 Initial Weight: 112.548 kg Initial BMI: 44.6 Current Weight: 103.873 kg Current BMI: 41.2 Type of Surgery: Vertical Sleeve Gastrectomy Total Volume in Band: Previous Volume: Volume Removed: Volume Added: Band Size:
== END ==
LOC: BARWHC3 12:59
PROVIDERS: ATTEND Surgery
DX: E66.01 Morbid (severe) obesity due to excess calories (principal); Z71.3 Dietary counseling and surveillance; Z91.048 Other nonmedicinal substance allergy status
CPT/HCPCS: 97802; 99211

== ENCOUNTER → 2023-04-29 | Outpatient (CLI) | payer BC ==
[2023-04-29 15:03] VITALS: BMI 42.0
[2023-04-29 15:04] VITALS: BP 127/76; PULSE 83; TEMP 97.7
--- NOTE | 2023-04-29 15:52 | P.BASOAP ---
Subjective Progress Note Date: 04/29/23 Principal diagnosis: Morbid obesity Patient returns for recheck. Underwent sleeve gastrectomy 2 weeks ago. Last week when she was seen her oral intake was somewhat poor. She is doing better now. Approximately 50 ounces of liquid intake daily. 30-50 g of protein daily. No pain. No heartburn. Heart rate normal. Objective - Vital Signs Vital signs: Vital Signs Temp 97.7 F 04/29/23 14:56 Pulse 83 04/29/23 14:56 Resp BP 127/76 04/29/23 14:56 Pulse Ox FiO2 Intake & Output 04/28/23 04/29/23 04/29/23 18:59 06:59 18:59 Weight 104.326 kg - Exam Abdomen: Soft, nontender, nondistended, incisions clean and dry Assessment/Plan (1) Morbid obesity with BMI of 40.0-44.9, adult Narrative/Plan: 62-year-old female doing well after sleeve gastrectomy. Continue gradual diet progression. Monitor incision sites. Follow-up 2 weeks. Check labs at that time. Plan: Date: 04/29/23 Initial Weight: 112.548 kg Initial BMI: 45.3 Current Weight: 104.326 kg Current BMI: 42.0 Type of Surgery: Total Volume in Band: Previous Volume: Volume Removed: Volume Added: Band Size:
== END ==
LOC: BARWHC3 13:59
PROVIDERS: ATTEND Surgery
DX: E66.01 Morbid (severe) obesity due to excess calories (principal); Z71.3 Dietary counseling and surveillance; Z98.84 Bariatric surgery status; Z91.048 Other nonmedicinal substance allergy status; Z68.41 Body mass index [BMI] 40.0-44.9, adult
CPT/HCPCS: 97803; 99211

== ENCOUNTER → 2023-05-13 | Outpatient (CLI) | payer BC ==
[2023-05-13 14:03] VITALS: BP 137/61; PULSE 88; TEMP 98.1; BMI 40.1
--- NOTE | 2023-05-13 17:00 | P.BASOAP ---
Subjective Progress Note Date: 05/13/23 Principal diagnosis: Morbid obesity Patient returns for reevaluation. Doing well since a few weeks ago. She has lost adequate amount of weight. She had nausea on one occasion. No vomiting. No pain. Denies reflux symptoms. She is due for one month labs. Objective - Vital Signs Vital signs: Vital Signs Temp 98.1 F 05/13/23 13:54 Pulse 88 05/13/23 13:54 Resp BP 137/61 05/13/23 13:54 Pulse Ox FiO2 Intake & Output 05/12/23 05/13/23 05/13/23 18:59 06:59 18:59 Weight 101.151 kg - Exam Abdomen: Soft, nondistended, incisions clean and dry Assessment/Plan (1) Morbid obesity with BMI of 40.0-44.9, adult Narrative/Plan: Patient doing well at this time. Continue dietary and exercise regimen. Check one month labs. Follow-up one month. Plan: Date: 05/13/23 Initial Weight: 112.548 kg Initial BMI: 44.6 Current Weight: 101.151 kg Current BMI: 40.1 Type of Surgery: Total Volume in Band: Previous Volume: Volume Removed: Volume Added: Band Size:
== END ==
LOC: BARWHC3 13:01
PROVIDERS: ATTEND Surgery
DX: E66.01 Morbid (severe) obesity due to excess calories (principal); Z68.41 Body mass index [BMI] 40.0-44.9, adult; Z91.048 Other nonmedicinal substance allergy status; Z71.3 Dietary counseling and surveillance
CPT/HCPCS: 97803; 99211

== ENCOUNTER → 2023-05-23 | Outpatient (CLI) | payer BC ==
[2023-05-23 19:12] LABS: HGB 13.4 g/dL (12.0-15.0); MCH 27.8 pg (27.0-32.0); MCHC 32.7 g/dL (32.0-37.0); MCV 85.1 FL (80.0-97.0); Mean Platelet Volume 12.7 FL (9.5-12.2); NRBC Per 100 WBC 0 X 10*3/uL (0.00-0.01); Platelet Count 87 X 10*3/uL (140-440); RBC 4.82 X 10*6/uL (4.10-5.20); RDW 14.7 % (11.5-14.5); WBC 6.46 X 10*3/uL (4.50-10.00)
[2023-05-23 19:39] LABS: ALT 22 U/L (8-44); AST 30 U/L (13-35); Albumin 3.9 g/dL (3.8-4.9); Albumin/Globulin Ratio 1.56 Ratio (1.60-3.17); Alkaline Phosphatase 46 U/L (41-126); BUN/Creat Ratio 16.44 Ratio (12.00-20.00); Blood Urea Nitrogen 14.8 mg/dL (9.0-27.0); Calcium 9.4 mg/dL (8.7-10.3); Carbon Dioxide 24.5 mmol/L (21.6-31.8); Chloride 100 mmol/L (96-109); Globulin 2.5 g/dL (1.6-3.3); Glucose 183 mg/dL (70-110); Iron 41 UG/DL (50-170); Potassium 3.7 mmol/L (3.5-5.5); Sodium 142 mmol/L (135-145); Total Bilirubin 0.7 mg/dL (0.3-1.2); Total Protein 6.4 g/dL (6.2-8.2)
== END | disposition home or self-care (01) ==
LOC: LABPAT 13:34
PROVIDERS: ATTEND Surgery
DX: E66.01 Morbid (severe) obesity due to excess calories (principal); K90.89 Other intestinal malabsorption; E55.9 Vitamin D deficiency, unspecified
CPT/HCPCS: 80053; 82306; 82607; 82746; 83540; 84425; 85027

== ENCOUNTER → 2023-06-17 | Outpatient (CLI) | payer BC ==
[2023-06-17 13:21] VITALS: BP 148/62; PULSE 78; RESP 16; TEMP 98.3; BMI 39.2
--- NOTE | 2023-06-17 14:07 | P.BASOAP ---
Subjective Progress Note Date: 06/17/23 Principal diagnosis: Morbid obesity Patient returns for recheck. Doing well since her last visit 1 month ago. She has lost 5 pounds. She has been exercising on the recumbent bike somewhat. Also doing some toning exercises. Less than 1000 erica/day. Rare episodes of regurgitation less than once per week. No pain. Still on antiacids. Objective - Vital Signs Vital signs: Vital Signs Temp 98.3 F 06/17/23 13:16 Pulse 78 06/17/23 13:16 Resp 16 06/17/23 13:16 BP 148/62 06/17/23 13:16 Pulse Ox FiO2 Intake & Output 06/16/23 06/17/23 06/17/23 18:59 06:59 18:59 Weight 98.883 kg - Exam Abdomen: Soft, nontender, nondistended Assessment/Plan (1) Morbid obesity with BMI of 40.0-44.9, adult Narrative/Plan: Patient doing well at this time. Continue dietary and exercise regimen. Increase activities. Follow-up 1 month. Check 3-month labs at that time. Plan: Date: 06/17/23 Initial Weight: 112.548 kg Initial BMI: 44.6 Current Weight: 98.883 kg Current BMI: 39.2 Type of Surgery: Vertical Sleeve Gastrectomy Total Volume in Band: Previous Volume: Volume Removed: Volume Added: Band Size:
== END ==
LOC: BARWHC3 13:00
PROVIDERS: ATTEND Surgery
DX: E66.01 Morbid (severe) obesity due to excess calories (principal); Z71.3 Dietary counseling and surveillance; Z68.39 Body mass index [BMI] 39.0-39.9, adult; Z91.048 Other nonmedicinal substance allergy status
CPT/HCPCS: 99211

== ENCOUNTER → 2023-07-02 | Outpatient (CLI) | payer BC ==
--- NOTE | 2023-07-03 12:14 | BD ---
EXAMINATION TYPE: Axial Bone Density DATE OF EXAM: 07/02/2023 CLINICAL HISTORY: 62 years old Female. ICD-10 CODE: Z78.0 ASYMPTOMATIC MENOPAUSAL STATE Height: 62.2 in Weight: 213 lbs EXAM MEASUREMENTS: Bone mineral densitometry was performed using the [employer] System. Bone mineral density as measured about the Lumbar spine is: ----- L1-L4(G/cm2): 1.369 T Score Values are as follows: ----- L1: 0.7 ----- L2: 1.7 ----- L3: 2.5 ----- L4: 1.2 ----- L1-L4: 1.6 Z Score Values are as follows: ----- L1: 1.0 ----- L2: 1.9 ----- L3: 2.8 ----- L4: 1.4 ----- L1-L4: 1.8 Bone mineral density baseline Bone mineral density about the R hip (g/cm2): 1.082 Bone mineral density about the L hip (g/cm2): 1.164 T Score values are as follows: -----R Neck: 0.0 -----L Neck: 0.2 -----R Total: 0.6 -----L Total: 1.2 Z Score values are as follows: -----R Neck: 0.6 -----L Neck: 0.8 -----R Total: 0.8 -----L Total: 1.5 Bone mineral density baseline FRAX%s: The graph provided illustrates a 5.8% chance for a major osteoporotic fx and a 0.1% chance fo r the hips probability for fx in 10 years time. IMPRESSION: Normal (Values between +1 and -1 indicate normal bone mass). Consider repeating this study in 5 year s or sooner if there is some new clinical indication. NOTE: T-SCORE=SD OF THE YOUNG ADULT MEAN.
--- NOTE | 2023-07-04 10:16 | MM ---
Reason for Exam: Screening (asymptomatic). Last mammogram was performed 2 year(s) and 7 month(s) ago. Patient History: Menarche at age 13. Patient has no children. Postmenopausal. Patient used Hormonal Contraceptives for 5 years. Risk Values: Bertha 5 year model risk: 1.6%. NCI Lifetime model risk: 7.9%. Prior Study Comparison: 11/30/2020 Bilateral Screening Mammogram, [facility]. 12/20/2020 Left Diagnostic Mammogram, [facility]. 07/04/2021 Left Diagnostic Mammogram, [facility]. Tissue Density: There are scattered fibroglandular densities. Findings: Analyzed By CAD. There is no suspicious group of microcalcifications or new suspicious mass in either breast. Overall Assessment: Negative, BI-RAD 1 Management: Screening Mammogram of both breasts in 1 year. . Patient should continue monthly self-breast exams. A clinical breast exam by your physician is recommended on an annual basis. This exam should not preclude additional follow-up of suspicious palpable abnormalities. Note on Bertha scores and lifetime risk: 1. A Bertha score greater than 3% is considered moderate risk. If this is the case, consider specialist referral to assess eligibility for a risk reducing agent. 2. If overall lifetime risk for the development of breast cancer is 20% or higher, the patient may qualify for future screening with alternating mammogram and breast MRI. Electronically signed and approved by: Fernando Duarte M.D. Radiologis
== END | disposition home or self-care (01) ==
LOC: RADMAMWWP 15:45
PROVIDERS: ATTEND Family Medicine
DX: Z12.31 Encounter for screening mammogram for malignant neoplasm of breast (principal); Z78.0 Asymptomatic menopausal state
CPT/HCPCS: 77063; 77067; 77080

== ENCOUNTER → 2023-07-29 | Outpatient (CLI) | payer BC ==
[2023-07-29 13:18] VITALS: BP 136/80; PULSE 80; TEMP 97.9; BMI 37.1
--- NOTE | 2023-07-29 15:43 | P.BASOAP ---
Subjective Progress Note Date: 07/29/23 Principal diagnosis: Morbid obesity Patient doing well today. Last seen 6 weeks ago. Excellent weight loss since then. Tolerating about 60+ grams of protein daily. No vomiting. No GERD. Taking antiacids daily. Denies pain. Does notice a small bulge like area possibly at her extraction site. She is due for 3-month labs. Objective - Vital Signs Vital signs: Vital Signs Temp 97.9 F 07/29/23 13:08 Pulse 80 07/29/23 13:08 Resp BP 136/80 07/29/23 13:08 Pulse Ox FiO2 Intake & Output 07/28/23 07/29/23 07/29/23 18:59 06:59 18:59 Weight 93.621 kg - Exam Abdomen: Soft, nondistended, mild induration at extraction site incision, no definite hernia palpable Assessment/Plan (1) Morbid obesity with BMI of 40.0-44.9, adult Narrative/Plan: Patient doing well postoperatively. Check 3-month labs at this time. Continue dietary and exercise regimen. Try every other day antiacid therapy. Recheck extraction site on exam next visit. Follow-up 6 weeks. Plan: Date: 07/29/23 Initial Weight: 112.548 kg Initial BMI: 44.6 Current Weight: 93.621 kg Current BMI: 37.1 Type of Surgery: Total Volume in Band: Previous Volume: Volume Removed: Volume Added: Band Size:
== END ==
LOC: BARWHC3 12:59
PROVIDERS: ATTEND Surgery
DX: E66.01 Morbid (severe) obesity due to excess calories (principal); T81.89XA Other complications of procedures, not elsewhere classified, initial encounter; Z71.3 Dietary counseling and surveillance; Z68.41 Body mass index [BMI] 40.0-44.9, adult; Z91.048 Other nonmedicinal substance allergy status
CPT/HCPCS: 97803; 99211

== ENCOUNTER → 2023-09-02 | Outpatient (CLI) | payer BC ==
[2023-09-02 13:51] VITALS: BP 151/73; PULSE 88; TEMP 98.2; BMI 36.3
--- NOTE | 2023-09-02 15:51 | P.BASOAP ---
Subjective Progress Note Date: 09/02/23 Principal diagnosis: Obesity Patient returns for recheck. Last seen 1 month ago. Says the lump she felt at her extraction site has resolved. No pain there. No nausea or vomiting. Started taking her antiacids every other day but then stopped them since it was not needed. Blood pressure slightly higher today. She is not taking any medications. No nausea or vomiting. No dysphagia. Objective - Vital Signs Vital signs: Vital Signs Temp 98.2 F 09/02/23 13:26 Pulse 88 09/02/23 13:26 Resp BP 151/73 09/02/23 13:26 Pulse Ox FiO2 Intake & Output 09/01/23 09/02/23 09/02/23 18:59 06:59 18:59 Weight 91.626 kg - Exam Abdomen: Soft, nondistended, nontender, no palpable masses or hernias Assessment/Plan (1) Morbid obesity with BMI of 40.0-44.9, adult Narrative/Plan: Patient doing well after previous sleeve gastrectomy. Recent labs look good. Continue monitoring off of antiacids. Continue GI and DVT prophylaxis. Follow- up 6 weeks. Check 6-month labs at that time. Plan: Date: 09/02/23 Initial Weight: 112.548 kg Initial BMI: 44.6 Current Weight: 91.626 kg Current BMI: 36.3 Type of Surgery: Total Volume in Band: Previous Volume: Volume Removed: Volume Added: Band Size:
== END ==
LOC: BARWHC3 13:07
PROVIDERS: ATTEND Surgery
DX: E66.01 Morbid (severe) obesity due to excess calories (principal); Z91.048 Other nonmedicinal substance allergy status; Z98.84 Bariatric surgery status; Z68.41 Body mass index [BMI] 40.0-44.9, adult
CPT/HCPCS: 99211

== ENCOUNTER → 2023-11-04 | Outpatient (CLI) | payer BC ==
[2023-11-04 13:42] VITALS: BP 130/60; PULSE 77; RESP 16; TEMP 97.9; BMI 34.3
--- NOTE | 2023-11-04 14:58 | P.BASOAP ---
Subjective Progress Note Date: 11/04/23 Principal diagnosis: Morbid obesity Patient returns for recheck. Last seen in August. Doing well. 9 pound weight loss. No nausea or vomiting. Her goal is 160 she says. She is due for 6-month labs. No heartburn. Does not take antiacids. Objective - Vital Signs Vital signs: Vital Signs Temp 97.9 F 11/04/23 13:40 Pulse 77 11/04/23 13:40 Resp 16 11/04/23 13:40 BP 130/60 11/04/23 13:40 Pulse Ox FiO2 Intake & Output 11/03/23 11/04/23 11/04/23 18:59 06:59 18:59 Weight 86.636 kg - Exam Abdomen: Soft, nontender, nondistended Assessment/Plan (1) Morbid obesity with BMI of 40.0-44.9, adult Narrative/Plan: 63-year-old female doing well after previous sleeve gastrectomy. Continue dietary and exercise regimen. Check 6-month labs. Plan: Date: 11/04/23 Initial Weight: 112.548 kg Initial BMI: 44.6 Current Weight: 86.636 kg Current BMI: 34.3 Type of Surgery: Vertical Sleeve Gastrectomy Total Volume in Band: Previous Volume: Volume Removed: Volume Added: Band Size:
[2023-11-04 18:40] LABS: MCH 26.6 pg (27.0-32.0); MCHC 31.1 g/dL (32.0-37.0); MCV 85.6 FL (80.0-97.0); Mean Platelet Volume 12.7 FL (9.5-12.2); NRBC Per 100 WBC 0 X 10*3/uL (0.00-0.01); Platelet Count 101 X 10*3/uL (140-440); RBC 5.26 X 10*6/uL (4.10-5.20); RDW 14.5 % (11.5-14.5); WBC 6.88 X 10*3/uL (4.50-10.00)
[2023-11-04 19:29] LABS: ALT 26 U/L (8-44); AST 25 U/L (13-35); Albumin 4.5 g/dL (3.8-4.9); Albumin/Globulin Ratio 1.73 Ratio (1.60-3.17); Alkaline Phosphatase 70 U/L (41-126); BUN/Creat Ratio 24.11 Ratio (12.00-20.00); Blood Urea Nitrogen 21.7 mg/dL (9.0-27.0); Calcium 9.6 mg/dL (8.7-10.3); Carbon Dioxide 25.8 mmol/L (21.6-31.8); Chloride 104 mmol/L (96-109); Globulin 2.6 g/dL (1.6-3.3); Glucose 191 mg/dL (70-110); Iron 84 UG/DL (50-170); Potassium 4.6 mmol/L (3.5-5.5); Sodium 143 mmol/L (135-145); Total Bilirubin 1.1 mg/dL (0.3-1.2); Total Protein 7.1 g/dL (6.2-8.2)
== END ==
LOC: BARWHC3 13:33
PROVIDERS: ATTEND Surgery
DX: E66.01 Morbid (severe) obesity due to excess calories (principal); Z68.41 Body mass index [BMI] 40.0-44.9, adult; Z90.3 Acquired absence of stomach [part of]; Z98.84 Bariatric surgery status; Z71.3 Dietary counseling and surveillance; Z91.048 Other nonmedicinal substance allergy status; Z68.34 Body mass index [BMI] 34.0-34.9, adult
CPT/HCPCS: 80053; 82306; 82607; 82746; 83540; 84425; 85027; 97803; 99211

== ENCOUNTER → 2023-11-04 | Outpatient (CLI) | payer BC | END | disposition home or self-care (01) | LOC: LABPAT 14:43 | PROVIDERS: ATTEND Surgery | DX: Z53.9 Procedure and treatment not carried out, unspecified reason (principal) ==

== ENCOUNTER → 2024-01-20 | Outpatient (CLI) | payer BC ==
[2024-01-20 13:22] VITALS: BP 134/76; PULSE 81; RESP 16; TEMP 98.2; BMI 34.2
--- NOTE | 2024-01-20 14:03 | P.BASOAP ---
Subjective Progress Note Date: 01/20/24 Principal diagnosis: Morbid obesity Patient returns for recheck. She has only lost 1 pound since her last visit in October. Says she is grazing in the evening hours at times. Mostly healthy food like nuts. Patient has not been exercising regularly. Says she has right-sided hip pain when she walks long distances. No GERD. No vomiting. No antiacids. Objective - Vital Signs Vital signs: Vital Signs Temp 98.2 F 01/20/24 13:20 Pulse 81 01/20/24 13:20 Resp 16 01/20/24 13:20 BP 134/76 01/20/24 13:20 Pulse Ox FiO2 Intake & Output 01/19/24 01/20/24 01/20/24 18:59 06:59 18:59 Weight 86.183 kg - Exam Abdomen: Soft, nontender, nondistended Assessment/Plan (1) Morbid obesity with BMI of 40.0-44.9, adult Narrative/Plan: 63-year-old female doing fairly well after previous sleeve gastrectomy. Continue monitoring oral intake. Says that usually she is between [id number] erica/day. Patient says she is able to bike and we discussed using biking more frequently for form of exercise. Plan recheck 6 weeks. Plan: Date: 01/20/24 Initial Weight: 112.548 kg Initial BMI: 44.6 Current Weight: 86.183 kg Current BMI: 34.2 Type of Surgery: Vertical Sleeve Gastrectomy Total Volume in Band: Previous Volume: Volume Removed: Volume Added: Band Size:
== END ==
LOC: BARWHC3 13:01
PROVIDERS: ATTEND Surgery
CPT/HCPCS: 99211

== ENCOUNTER → 2024-03-02 | Outpatient (CLI) | payer BC ==
[2024-03-02 14:10] VITALS: BP 138/71; PULSE 73; RESP 16; TEMP 98.1; BMI 33.6
--- NOTE | 2024-03-02 15:42 | P.BASOAP ---
Subjective Progress Note Date: 03/02/24 Principal diagnosis: Morbid obesity Patient returns for recheck. Lost 3 pounds since her last visit. Underwent sleeve gastrectomy last March. Last seen in December. She has stopped snacking. The right sided pain she was having has resolved. She has been exercising by biking more. Objective - Vital Signs Vital signs: Vital Signs Temp 98.1 F 03/02/24 14:08 Pulse 73 03/02/24 14:08 Resp 16 03/02/24 14:08 BP 138/71 03/02/24 14:08 Pulse Ox FiO2 Intake & Output 03/01/24 03/02/24 03/02/24 18:59 06:59 18:59 Weight 84.822 kg - Exam Abdomen: Soft, nontender, nondistended Assessment/Plan (1) Morbid obesity with BMI of 40.0-44.9, adult Narrative/Plan: Patient doing well today. Continue dietary and exercise regimen. Will provide slip for lab work to be drawn next month. Follow-up early April. Plan: Date: 03/02/24 Initial Weight: 112.548 kg Initial BMI: 44.6 Current Weight: 84.822 kg Current BMI: 33.6 Type of Surgery: Vertical Sleeve Gastrectomy Total Volume in Band: Previous Volume: Volume Removed: Volume Added: Band Size:
== END | disposition home or self-care (01) ==
LOC: BARWHC3 13:12
PROVIDERS: ATTEND Surgery
CPT/HCPCS: 99211

== ENCOUNTER → 2024-04-30 | Outpatient (CLI) | payer BC ==
[2024-04-30 19:46] LABS: ALT 22 U/L (8-44); AST 26 U/L (13-35); Albumin 4.1 g/dL (3.8-4.9); Albumin/Globulin Ratio 1.86 Ratio (1.60-3.17); Alkaline Phosphatase 70 U/L (41-126); BUN/Creat Ratio 19.25 Ratio (12.00-20.00); Blood Urea Nitrogen 15.4 mg/dL (9.0-27.0); Calcium 9.4 mg/dL (8.7-10.3); Carbon Dioxide 26.9 mmol/L (21.6-31.8); Chloride 104 mmol/L (96-109); Globulin 2.2 g/dL (1.6-3.3); Glucose 132 mg/dL (70-110); Iron 86 UG/DL (50-170); Potassium 4.3 mmol/L (3.5-5.5); Sodium 143 mmol/L (135-145); Total Bilirubin 0.8 mg/dL (0.3-1.2); Total Protein 6.3 g/dL (6.2-8.2)
[2024-04-30 20:34] LABS: HGB 13.3 g/dL (12.0-15.0); Immature Platelet Fraction 8.7 % (1.1-6.1); MCH 27.3 pg (27.0-32.0); MCHC 32.4 g/dL (32.0-37.0); MCV 84.2 FL (80.0-97.0); Mean Platelet Volume 12.8 FL (9.5-12.2); NRBC Per 100 WBC 0 X 10*3/uL (0.00-0.01); Platelet Count 78 X 10*3/uL (140-440); RBC 4.87 X 10*6/uL (4.10-5.20); RDW 13.8 % (11.5-14.5); WBC 5.65 X 10*3/uL (4.50-10.00)
== END | disposition home or self-care (01) ==
LOC: LABWHC1 12:36
PROVIDERS: ATTEND Surgery
DX: E55.9 Vitamin D deficiency, unspecified (principal); E89.1 Postprocedural hypoinsulinemia; K90.89 Other intestinal malabsorption
CPT/HCPCS: 36415; 80053; 82306; 82607; 83036; 83540; 84425; 85027

== ENCOUNTER → 2024-05-04 | Outpatient (CLI) | payer BC ==
[2024-05-04 14:04] VITALS: BP 136/77; PULSE 77; RESP 16; TEMP 98.1; BMI 32.2
--- NOTE | 2024-05-04 14:39 | P.BASOAP ---
Subjective Progress Note Date: 05/04/24 Principal diagnosis: Morbid obesity Patient returns for recheck. Last seen 1 to 2 months ago. Excellent weight loss. BMI now 32. No nausea or vomiting. No GERD. Recent annual labs show a slightly lower plate level. 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 Has never been worked up. Objective - Vital Signs Vital signs: Vital Signs Temp 98.1 F 05/04/24 14:02 Pulse 77 05/04/24 14:02 Resp 16 05/04/24 14:02 BP 136/77 05/04/24 14:02 Pulse Ox FiO2 Intake & Output 05/03/24 05/04/24 05/04/24 18:59 06:59 18:59 Weight 81.193 kg - Exam Abdomen: Soft, nontender, nondistended Assessment/Plan (1) Morbid obesity with BMI of 40.0-44.9, adult Narrative/Plan: 63-year-old female doing well after previous sleeve gastrectomy. Continue exercise and dietary regimen. Will consult hematology for thrombocytopenia. Recheck 6 months. Plan: Date: 05/04/24 Initial Weight: 112.548 kg Initial BMI: 44.6 Current Weight: 81.193 kg Current BMI: 32.2 Type of Surgery: Vertical Sleeve Gastrectomy Total Volume in Band: Previous Volume: Volume Removed: Volume Added: Band Size:
== END ==
LOC: BARWHC3 13:27
PROVIDERS: ATTEND Surgery
DX: E66.01 Morbid (severe) obesity due to excess calories (principal); Z68.32 Body mass index [BMI] 32.0-32.9, adult; Z91.048 Other nonmedicinal substance allergy status
CPT/HCPCS: 99211

== ENCOUNTER → 2024-11-02 | Outpatient (CLI) | payer BC ==
[2024-11-02 14:19] VITALS: BP 117/74; PULSE 74; RESP 16; TEMP 97.7; BMI 27.7
--- NOTE | 2024-11-02 15:45 | P.BASOAP ---
Subjective Progress Note Date: 11/02/24 Principal diagnosis: Morbid obesity Patient returns for recheck. Doing well since last visit. Has lost another 25 pounds. Did start taking Mounjaro 3 to 4 months ago and says she lost an extra 10 to 15 pounds after starting that. She did see hematology. Platelets have stabilized. Started taking some Prilosec because of a hoarseness of her voice about 3 to 4 weeks ago. Has not noticed any improvement in her symptoms. Objective - Vital Signs Vital signs: Vital Signs Temp 97.7 F 11/02/24 14:16 Pulse 74 11/02/24 14:16 Resp 16 11/02/24 14:16 BP 117/74 11/02/24 14:16 Pulse Ox FiO2 Intake & Output 11/01/24 11/02/24 11/02/24 18:59 06:59 18:59 Weight 69.853 kg - Exam Abdomen: Soft, nontender, nondistended Assessment/Plan (1) Morbid obesity with BMI of 40.0-44.9, adult Narrative/Plan: Patient doing well at this time. Excellent weight loss. BMI 27. Continue dietary and exercise regimen. Wean off antiacids if no improvement in voice hoarseness noted. Follow-up 6 months. Plan: Date: 11/02/24 Initial Weight: 112.548 kg Initial BMI: 44.6 Current Weight: 69.853 kg Current BMI: 27.7 Type of Surgery: Vertical Sleeve Gastrectomy Total Volume in Band: Previous Volume: Volume Removed: Volume Added: Band Size:
== END ==
LOC: BARWHC3 13:59
PROVIDERS: ATTEND Surgery
DX: E66.01 Morbid (severe) obesity due to excess calories (principal); Z68.27 Body mass index [BMI] 27.0-27.9, adult; Z91.048 Other nonmedicinal substance allergy status
CPT/HCPCS: 99211